=== PATIENT | female | born 1950 | race Caucasian/White ===

== ENCOUNTER → 2023-10-02 11:52 | Outpatient (REF) | payer MEDICARE, BC, SELFPAY | LOC: WDC 11:52 | PROVIDERS: ATTENDING PHYSICIAN Family Medicine | DX: Z12.31 Encounter for screening mammogram for malignant neoplasm of breast (principal) | CPT/HCPCS: 77063; 77067 ==

== ENCOUNTER → 2023-10-24 11:42 | Outpatient (REF) | payer MEDICARE, BC, SELFPAY | LOC: RAD 11:42 | PROVIDERS: ATTENDING PHYSICIAN Specialist; FAMILY PHYSICIAN Family Medicine | DX: N20.0 Calculus of kidney (principal) | CPT/HCPCS: 74018 ==

== ENCOUNTER → 2024-10-28 17:14 | Outpatient (REF) | payer MEDICARE, BC, SELFPAY | LOC: RAD 17:14 | PROVIDERS: ATTENDING PHYSICIAN Specialist; FAMILY PHYSICIAN Family Medicine | DX: N20.0 Calculus of kidney (principal) | CPT/HCPCS: 74018 ==